=== PATIENT | male | born 1970 | race Two or more races ===

== ENCOUNTER 2025-06-08 19:55 | Inpatient (IN) | payer OTHER ==
[~2025-06-08] VITALS: Ht 185.4 cm; Wt 92.7 kg
[2025-06-08 19:59] VITALS: O2SAT 96
[2025-06-08] MEDS: IV NS 0.9% 1,000 ML BAG IV ONE (20:30)
[2025-06-08] MEDS: HYDROMORPHONE INJ 2 MG/ML DISP.SYRIN IV ONE (20:30)
[2025-06-08 21:18] LABS: PLATELET COUNT (AUTO) 185 K/uL (150-450); RED BLOOD CELL COUNT(AUTO) 4.32 MIL/uL (4.5-6.0); RED CELL DISTRIBUTION WIDTH 22.1 % (11.5-15.0); WHITE BLOOD COUNT (AUTO) 4.2 K/uL (4.3-11.0)
[2025-06-08 21:25] LABS: CALCIUM, SERUM 8.5 mg/dL (8.5-10.1); CREATININE 1.2 mg/dL (0.6-1.3); UREA NITROGEN, BLOOD 14.0 mg/dL (7-18)
[2025-06-08 21:34] LABS: SODIUM SERUM 140.0 mmol/L (136-145)
[2025-06-08] MEDS ORDERED: HYDROMORPHONE 1 MG/1 ML DISP.SYRIN ONE (21:40)
[2025-06-08] MEDS ORDERED: ZOLPIDEM TARTRATE 5 MG TABLET PO PRN (23:00)
[2025-06-08] MEDS ORDERED: ACETAMINOPHEN 325 MG TABLET PO PRN (23:00)
[2025-06-08] MEDS ORDERED: MAGNESIUM HYDROXIDE 30 ML UDC PO PRN (23:00)
[2025-06-08] MEDS ORDERED: HYDROMORPHONE 1 MG/1 ML DISP.SYRIN IV PRN ×2 (23:00)
[2025-06-08] MEDS ORDERED: NA PHOS,M-B/NA PHOS,DI-BA 1 EA ENEMA RC PRN (23:00)
[2025-06-08] MEDS ORDERED: MAG HYDROX/AL HYDROX/SIMETH 30 ML UDC PO PRN (23:00)
[2025-06-08] MEDS ORDERED: ONDANSETRON HCL/PF 4 MG/2 ML VIAL IVP PRN (23:00)
[2025-06-08] MEDS ORDERED: Z GUARD REMEDY 4 OZ OINT TP PRN (23:00)
[2025-06-08 23:40] VITALS: BP 94/72; TEMP 97.7; O2SAT 94
[2025-06-09] MEDS: DOCUSATE SODIUM 100 MG CAPSULE PO SCH (01:17)
[2025-06-09] MEDS ORDERED: POTASSIUM CHLORIDE 20 MEQ TAB.PRT.SR PO ONE (01:32)
[2025-06-09] MEDS ORDERED: POTASSIUM CHLORIDE 20 MEQ POWDER PACKET ONE (01:36)
[2025-06-09] MEDS: POTASSIUM CHLORIDE 20 MEQ POWDER PACKET PO ONE (01:37)
[2025-06-09 05:00] VITALS: BP 96/71; TEMP 97.8; O2SAT 95
[2025-06-09 07:30] VITALS: BP 94/74; TEMP 97.6; O2SAT 92
[2025-06-09] MEDS: BUMETANIDE (1 MG) 1 MG TABLET PO SCH (08:38)
[2025-06-09] MEDS: PANTOPRAZOLE 40 MG TABLET.DR PO SCH (08:38)
[2025-06-09] MEDS: APIXABAN 2.5 MG TABLET PO SCH (08:39)
[2025-06-09] MEDS: NEOMY SULF/BACITRAC ZN/POLY 15 GM TUBE TP SCH (08:40)
[2025-06-09] MEDS ORDERED: AMMONIUM LACTATE 227 GM BOTTLE TP SCH (17:00)
== END 2025-06-09 15:42 | disposition hospice, home (50) | DRG 254 ==
LOC: ER 19:57 → TELE 22:54
PROVIDERS: ADMIT Registered Nurse Psychiatric/Mental Health; ATTEND Nurse Practitioner Acute Care
DX: K59.03 Drug induced constipation (principal); Z66 Do not resuscitate; Z51.5 Encounter for palliative care; C90.00 Multiple myeloma not having achieved remission; E87.6 Hypokalemia; Y92.9 Unspecified place or not applicable; T40.2X5A Adverse effect of other opioids, initial encounter; J90 Pleural effusion, not elsewhere classified; Z86.73 Personal history of transient ischemic attack (TIA), and cerebral infarction without residual deficits; I87.8 Other specified disorders of veins; R61 Generalized hyperhidrosis; L85.3 Xerosis cutis; Z88.5 Allergy status to narcotic agent; I50.9 Heart failure, unspecified; Z86.2 Personal history of diseases of the blood and blood-forming organs and certain disorders involving the immune mechanism
CPT/HCPCS: 36415; 71045-TC; 80048-TC; 85025-TC; 87081-TC; A6253; A6403; G0378; J1171